=== PATIENT | male | born 1975 | race Caucasian/White ===

== ENCOUNTER 2020-04-30 18:05 | Emergency (ER) | payer SELFPAY ==
[~2020-04-30 18:05] MED LIST: IBUPROFEN800 MG PO; NORCO 5-325 TA1 EACH PO
== END 2020-04-30 19:07 | disposition left against medical advice (07) ==
LOC: ER1 18:05
DX: Z53.21 Procedure and treatment not carried out due to patient leaving prior to being seen by health care provider (principal)

== ENCOUNTER 2020-07-14 16:38 | Emergency (ER) | payer OTHER ==
[2020-07-14] MEDS ORDERED: KENALOG OINT 0.15 GM TOP (19:49)
== END 2020-07-14 19:55 | disposition home or self-care (01) ==
LOC: ER1 16:38
DX: M54.2 Cervicalgia (principal); M54.9 Dorsalgia, unspecified; M79.604 Pain in right leg
CPT/HCPCS: 72125; 72128; 72131; 73130; 73590; 99284

== ENCOUNTER 2020-07-19 17:59 | Emergency (ER) | payer OTHER, MEDICARE ==
[~2020-07-19 17:59] MED LIST changes: +KENALOG OINT 0.15 GM TOP
[2020-07-19 18:54] LABS: HEMOGLOBIN 16.7 gm/dl (14.0-17.5); RED BLOOD COUNT 5.09 M/UL (4.20-5.50); WHITE BLOOD COUNT 2.4 K/UL (4.5-11.0)
[2020-07-19 19:57] LABS: BUN/CREATININE RATIO 8 (0-10)
== END 2020-07-19 23:18 | disposition home or self-care (01) ==
LOC: ER1 17:59
PROVIDERS: Emergency Medicine
DX: R07.2 Precordial pain (principal); R06.00 Dyspnea, unspecified; D72.819 Decreased white blood cell count, unspecified; Z20.822 Contact with and (suspected) exposure to COVID-19; I10 Essential (primary) hypertension
CPT/HCPCS: 0240U; 80053; 82550; 82553; 83874; 83880; 84484; 85025; 93005; 99285; Q9967

== ENCOUNTER → 2020-11-02 | Emergency (ER) | payer OTHER ==
[~2020-11-02] MED LIST changes: +LODINE CAP 300300 MG PO
== END | disposition home or self-care (01) ==
LOC: ER1 04:10
DX: S43.401A Unspecified sprain of right shoulder joint, initial encounter (principal); X50.9XXA Other and unspecified overexertion or strenuous movements or postures, initial encounter
CPT/HCPCS: 73030; 99283